=== PATIENT | female | born 1985 | race Caucasian/White ===

== ENCOUNTER → 2017-01-17 | Outpatient (CLI) | payer OTHER ==
--- NOTE | 2017-01-17 16:44 | US ---
EXAMINATION TYPE: US transvaginal DATE OF EXAM: 01/17/2017 COMPARISON: US 2012 CLINICAL HISTORY: Pelvic Pain R10.2. Symptoms x 2 weeks and noted across pelvis; constipation x 6 mon ths; had miscarriage in November. TECHNIQUE: Transvaginal (TV) Date of LMP: November 2016 EXAM MEASUREMENTS: Uterus: 7.8 x 5.5 x 3.8 cm Endometrial Stripe: 1.0 cm Right Ovary: 2.9 x 2.3x 2.0 cm Left Ovary: 2.5 x 2.3 x 2.0 cm 1. Uterus: Anteverted; Nabothian cysts in CX with largest = 0.3 x 0.3 x 0.2cm; heterogeneous/ nodula r appearance to upper myometrium with possible uterine fibroid = 1.1 x 1.2 x 0.9cm. 2. Endometrium: unable to correlate thickness with November LMP; small cyst in upper endometrium = 0.2 x 0.2 x 0.1cm 3. Right Ovary: multiple small follicles 4. Left Ovary: multiple small follicles with largest = 0.9 x 0.8 x 0.7cm Spectral, color and waveform Doppler imaging shows good arterial and venous flow within the ovaries ; 5. Bilateral Adnexa: wnl 6. Posterior cul-de-sac: wnl Uterus is heterogeneous in appearance. Endometrium is 10 mm which is not suspiciously thickened for s ecretory phase of menstrual cycle. There is suspected 1.2 cm intramural fibroid posterior myometrium marked by technologist. Multiple nabothian cysts are seen in the cervix. No free fluid is seen in pel vis. Both ovaries are identified. No suspicious extraovarian adnexal masses are seen. IMPRESSION: Suspect 1.2 cm posterior intramural fibroid.
== END | disposition home or self-care (01) ==
LOC: RADUSWWP 15:38
PROVIDERS: ATTEND Obstetrics & Gynecology
DX: R10.2 Pelvic and perineal pain (principal)
CPT/HCPCS: 76830

== ENCOUNTER → 2017-07-25 | Outpatient (CLI) | payer OTHER ==
--- NOTE | 2017-07-25 10:40 | FL ---
Barium swallow HISTORY: Dysphagia Patient was given barium to drink. 1.1 minutes fluoroscopy time, 35 images The swallowing mechanism is normal. No evident gastroesophageal reflux. No extrinsic or intrinsic eso phageal mass. No sizable hiatal hernia. IMPRESSION: Unremarkable barium swallow
== END | disposition home or self-care (01) ==
LOC: RADFLWHC 09:35
PROVIDERS: ATTEND Family Medicine
DX: R13.19 Other dysphagia (principal)
CPT/HCPCS: 74220

== ENCOUNTER 2017-10-31 10:22 | Emergency (ER) | payer OTHER ==
[2017-10-31 10:46] LABS: Glucose,Whole Blood 103 mg/dL (75-99)
--- NOTE | 2017-10-31 11:05 | ED ---
Weakness HPI - General Chief complaint: Weakness Stated complaint: lt sided numbness Time Seen by Provider: 10/31/17 10:44 Source: patient Mode of arrival: wheelchair Limitations: no limitations - History of Present Illness Initial comments: Patient is a 32-year-old female with past medical history of depression, panic disorder and anxiety who presents for left-sided weakness, numbness, tingling. She states that she was last known normal last night and this morning when she woke up, she was having these symptoms on the left side. She was recently started on Prozac on Friday and she called her PCP who prescribed his medication in the PCP advised her to come to the emergency department for evaluation of possible stroke. Patient states that she has no other past medical problems but that her father did have a stroke at 45 years old. She denies any blurry vision as well as dizziness. - Related Data Home Medications Medication Instructions Recorded Confirmed FLUoxetine HCL [PROzac] 20 mg PO HS 10/31/17 10/31/17 Luz Elena 1 tab PO HS 10/31/17 10/31/17 Omeprazole [PriLOSEC] 20 mg PO HS 10/31/17 10/31/17 Allergies Allergy/AdvReac Type Severity Reaction Status Date / Time Penicillins Allergy Anaphylaxis Verified 10/31/17 11:16 Review of Systems ROS Statement: Those systems with pertinent positive or pertinent negative responses have been documented in the HPI. Constitutional: Negative for chills, fatigue and fever. HENT: Negative for congestion. Respiratory: Negative for chest tightness, shortness of breath and wheezing. Cardiovascular: Negative for chest pain and palpitations. Gastrointestinal: Negative for abdominal pain. Negative for abdominal distention , diarrhea, nausea and vomiting. Genitourinary: Negative for dysuria. Musculoskeletal: Negative for back pain, neck pain and neck stiffness. Skin: Negative for color change. Neurological: Negative for dizziness, speech difficulty, and light-headedness. Positive for numbness, tingling, weakness Psychiatric/Behavioral: Negative for agitation and confusion. Positive for nervous/anxious. ROS Other: All systems not noted in ROS Statement are negative. Past Medical History Past Medical History: GERD/Reflux History of Any Multi-Drug Resistant Organisms: None Reported Additional Past Surgical History / Comment(s): Lumpectomy, LEEP, Past Psychological History: Anxiety, Depression, Panic Disorder Smoking Status: Current some day smoker Past Alcohol Use History: None Reported Past Drug Use History: None Reported General Exam - General Exam Comments Initial Comments: Physical Exam Constitutional: Pt is oriented to person, place, and time. Pt appears well- developed and well-nourished. No distress. HENT: Head: Normocephalic and atraumatic. Eyes: EOM are normal. Neck: Normal range of motion. Neck supple. Cardiovascular: Normal rate, regular rhythm, S1 normal, S2 normal and normal heart sounds. Exam reveals no gallop and no friction rub. No murmur heard. Pulmonary/Chest: Effort normal and breath sounds normal. No tachypnea and no bradypnea. No respiratory distress. No wheezes or rales noted. Abdominal: Soft. Bowel sounds are normal. Pt exhibits no shifting dullness, no distension, no pulsatile liver, no fluid wave, no abdominal bruit and no ascites. There is no tenderness. There is no rigidity, no rebound, no guarding, no tenderness at McBurney's point and negative Reynoso's sign. Musculoskeletal: Normal range of motion. Neurological: Pt is alert and oriented to person, place, and time. No cranial nerve deficit. Muscle strength 5 out of 5 in all extremities, No numbness noted on the left side with exception to the anterior surface of the left demarco Skin: Skin is warm and dry. No rash noted. Pt is not diaphoretic. No erythema. No pallor. Psychiatric: Pt has a normal mood and affect. Pt behavior is normal. Thought content normal. Limitations: no limitations Course Vital Signs 10/31/17 10/31/17 10/31/17 10:31 12:57 13:36 Temperature 99.6 F 97.9 F 98 F Pulse Rate 75 71 66 Respiratory 16 18 18 Rate Blood Pressure 133/70 131/72 154/78 O2 Sat by Pulse 99 98 99 Oximetry EKG Findings - EKG Comments: EKG Findings:: EKG shows normal sinus rhythm with a rate of 72 bpm, CA interval 170, QRS 76, QTC 431. There is no significant ST depressions or elevations Medical Decision Making - Medical Decision Making Laboratory studies revealed that electrolytes are within normal limits and hemoglobin was stable. EKG was also noted to be unremarkable as detailed another section of this note. Etiology of the initial symptoms are unclear and therefore CT head was performed and showed no evidence of acute pathology. Patient was observed for nearly 2-1/2-3 hours in the emergency department and she stated that her symptoms were nearly completely resolved. Extensive discussion was had with the patient regarding disposition of whether she should be brought into the hospital or discharged home. Joint decision making yielded that the patient will be discharged home as it is felt by both the physician and the patient that her symptoms are secondary to diagnoses other than CVA. Additionally, physical exam findings of left anterior demarco numbness is not consistent with acute CVA. Patient was unable to also provide a urine sample and understood that could not be excluded. Explained all labs and diagnostic test results and that we will discharge the patient home and patient is to follow up with PCP in 1-2 days and return to the ED if symptoms worsen. Pt is agreeable to plan. - Lab Data Result diagrams: 10/31/17 11:18 10/31/17 11:18 Lab Results 10/31/17 10/31/17 10/31/17 Range/Units 10:45 11:18 11:18 WBC 6.4 (3.8-10.6) k/uL RBC 4.44 (3.80-5.40) m/uL Hgb 13.9 (11.4-16.0) gm/dL Hct 40.6 (34.0-46.0) % MCV 91.5 (80.0-100.0) fL MCH 31.2 (25.0-35.0) pg MCHC 34.1 (31.0-37.0) g/dL RDW 12.4 (11.5-15.5) % Plt Count 237 (150-450) k/uL Neutrophils % 67 % Lymphocytes % 24 % Monocytes % 6 % Eosinophils % 2 % Basophils % 0 % Neutrophils # 4.3 (1.3-7.7) k/uL Lymphocytes # 1.5 (1.0-4.8) k/uL Monocytes # 0.4 (0-1.0) k/uL Eosinophils # 0.2 (0-0.7) k/uL Basophils # 0.0 (0-0.2) k/uL PT (9.0-12.0) sec INR (<1.2) APTT (22.0-30.0) sec Sodium 140 (137-145) mmol/L Potassium 4.4 (3.5-5.1) mmol/L Chloride 106 (98-107) mmol/L Carbon Dioxide 23 (22-30) mmol/L Anion Gap 11 mmol/L BUN 9 (7-17) mg/dL Creatinine 0.63 (0.52-1.04) mg/dL Est GFR (CKD-EPI)AfAm >90 (>60 ml/min/1.73 sqM) Est GFR (CKD-EPI)NonAf >90 (>60 ml/min/1.73 sqM) Glucose 88 (74-99) mg/dL POC Glucose (mg/dL) 103 H (75-99) mg/dL POC Glu Cnc Service Technician ID Jennifer Boss Calcium 9.0 (8.4-10.2) mg/dL Magnesium 2.1 (1.6-2.3) mg/dL Total Bilirubin 0.4 (0.2-1.3) mg/dL AST 23 (14-36) U/L ALT 27 (9-52) U/L Alkaline Phosphatase 58 (38-126) U/L Total Protein 6.6 (6.3-8.2) g/dL Albumin 3.8 (3.5-5.0) g/dL TSH 1.970 (0.465-4.680) mIU/L 10/31/17 Range/Units 11:18 WBC (3.8-10.6) k/uL RBC (3.80-5.40) m/uL Hgb (11.4-16.0) gm/dL Hct (34.0-46.0) % MCV (80.0-100.0) fL MCH (25.0-35.0) pg MCHC (31.0-37.0) g/dL RDW (11.5-15.5) % Plt Count (150-450) k/uL Neutrophils % % Lymphocytes % % Monocytes % % Eosinophils % % Basophils % % Neutrophils # (1.3-7.7) k/uL Lymphocytes # (1.0-4.8) k/uL Monocytes # (0-1.0) k/uL Eosinophils # (0-0.7) k/uL Basophils # (0-0.2) k/uL PT 10.1 (9.0-12.0) sec INR 1.0 (<1.2) APTT 22.5 (22.0-30.0) sec Sodium (137-145) mmol/L Potassium (3.5-5.1) mmol/L Chloride (98-107) mmol/L Carbon Dioxide (22-30) mmol/L Anion Gap mmol/L BUN (7-17) mg/dL Creatinine (0.52-1.04) mg/dL Est GFR (CKD-EPI)AfAm (>60 ml/min/1.73 sqM) Est GFR (CKD-EPI)NonAf (>60 ml/min/1.73 sqM) Glucose (74-99) mg/dL POC Glucose (mg/dL) (75-99) mg/dL POC Glu Cnc Service Technician ID Calcium (8.4-10.2) mg/dL Magnesium (1.6-2.3) mg/dL Total Bilirubin (0.2-1.3) mg/dL AST (14-36) U/L ALT (9-52) U/L Alkaline Phosphatase (38-126) U/L Total Protein (6.3-8.2) g/dL Albumin (3.5-5.0) g/dL TSH (0.465-4.680) mIU/L Disposition Clinical Impression: Numbness and tingling Disposition: HOME SELF-CARE Condition: Good Instructions: Paresthesia (ED) Is patient prescribed a controlled substance at d/c from ED?: No Referrals: Lorin Huitron MD [Primary Care Provider] - 1-2 days Time of Disposition: 13:07
[2017-10-31 11:40] LABS: Basophils % (A) 0 %; Eosinophils # (A) 0.2 k/uL (0-0.7); Eosinophils % (A) 2 %; HCT 40.6 % (34.0-46.0); HGB 13.9 gm/dL (11.4-16.0); Lymphocytes # (A) 1.5 k/uL (1.0-4.8); Lymphocytes % (A) 24 %; MCH 31.2 pg (25.0-35.0); MCHC 34.1 g/dL (31.0-37.0); MCV 91.5 fL (80.0-100.0); Mean Platelet Volume 7.1; Monocytes # (A) 0.4 k/uL (0-1.0); Monocytes % (A) 6 %; Neutrophils # (A) 4.3 k/uL (1.3-7.7); Neutrophils % (A) 67 %; Platelet Count 237 k/uL (150-450); RBC 4.44 m/uL (3.80-5.40); RDW 12.4 % (11.5-15.5); WBC 6.4 k/uL (3.8-10.6)
[2017-10-31 11:47] LABS: ALT 27 U/L (9-52); AST 23 U/L (14-36); Albumin 3.8 g/dL (3.5-5.0); Alkaline Phosphatase 58 U/L (38-126); Anion Gap 11 mmol/L; Blood Urea Nitrogen 9 mg/dL (7-17); Carbon Dioxide 23 mmol/L (22-30); Chloride 106 mmol/L (98-107); Glucose 88 mg/dL (74-99); Magnesium 2.1 mg/dL (1.6-2.3); Potassium 4.4 mmol/L (3.5-5.1); Sodium 140 mmol/L (137-145); Total Bilirubin 0.4 mg/dL (0.2-1.3); Total Protein 6.6 g/dL (6.3-8.2)
[2017-10-31 11:58] LABS: Partial Thromboplastin Time 22.5 sec (22.0-30.0); Prothrombin Time 10.1 sec (9.0-12.0)
--- NOTE | 2017-10-31 11:59 | CT ---
EXAMINATION TYPE: CT brain wo con DATE OF EXAM: 10/31/2017 COMPARISON: NONE HISTORY: Left sided leg and arm numbness and weakness CT DLP: 1036 mGycm. Automated Exposure Control for Dose Reduction was Utilized. TECHNIQUE: CT scan of the head is performed without contrast. FINDINGS: There is no acute intracranial hemorrhage, mass effect, or midline shift identified. The ventricles and sulci are within normal limits in size. Parkinson-white matter differentiation is maintai al. The globes are intact and the visualized sinuses are clear. IMPRESSION: No acute intracranial hemorrhage, mass effect, or midline shift is seen. Unremarkable st udy.
[2017-10-31 12:58] VITALS: RESP 18
[2017-10-31 13:37] VITALS: BP 154/78; PULSE 66; TEMP 98
== END 2017-10-31 13:36 | disposition home or self-care (01) ==
LOC: EC 10:22
DX: R20.0 Anesthesia of skin (principal); R20.2 Paresthesia of skin; R53.1 Weakness; K21.9 Gastro-esophageal reflux disease without esophagitis; F32.9 Major depressive disorder, single episode, unspecified; F41.0 Panic disorder [episodic paroxysmal anxiety]; F17.200 Nicotine dependence, unspecified, uncomplicated; Z79.899 Other long term (current) drug therapy; Z88.0 Allergy status to penicillin
CPT/HCPCS: 36415; 70450; 80053; 83735; 84443; 85025; 85610; 85730; 93005; 99285

== ENCOUNTER → 2018-01-12 | Outpatient (CLI) | payer OTHER ==
--- NOTE | 2018-01-12 10:46 | USB ---
Reason for exam: clinical finding. History: Benign left US cyst aspiration of the left breast, December 29, 2008. Benign US left guided VAD of the left breast, December 29, 2008. Excisional biopsy of the left breast, October 28, 2006. Indicated problem(s): lump or thickening in the left breast. Physical Findings: Nurse did not find any significant physical abnormalities on exam. US Breast BILAT Right complete breast ultrasound includes all four quadrants, the retroareolar region and axilla. Finding demonstrates no cystic or solid lesion seen. Left complete breast ultrasound includes all four quadrants, the retroareolar region and axilla. Finding demonstrates a 0.9 x 0.9 x 1.9cm linear, hyperechoic calcification at 7 o'clock at site of prior excisional biopsy. These results were verbally communicated with the patient and result sheet given to the patient on 01/12/18. ASSESSMENT: Benign, BI-RAD 2 RECOMMENDATION: Routine screening mammogram of both breasts at age 38. (or sooner if clinically indicated)
== END ==
LOC: RADUSWWP 09:02
PROVIDERS: ATTEND Obstetrics & Gynecology
DX: N63.10 Unspecified lump in the right breast, unspecified quadrant (principal); N63.20 Unspecified lump in the left breast, unspecified quadrant

== ENCOUNTER 2018-11-25 09:32 | Day surgery (SDC) | payer OTHER ==
[2018-11-23 10:29] VITALS: BMI 48.0
[2018-11-25 09:53] VITALS: TEMP 97.7
[2018-11-25] MEDS ORDERED: LACTATED RINGERS 1,000 ML IV ONE (09:54)
[2018-11-25] MEDS ORDERED: IV FLUID CONTINUATION 1,000 ML IV ONE ×2 (10:32)
--- NOTE | 2018-11-25 10:34 | P.PCN ---
Date of Procedure: 11/25/18 Procedure(s) Performed: Preoperative diagnosis: Headache Post operative diagnoses: Headache Procedure= diagnostic lumbar puncture under fluoroscopy guidance Anesthesia= moderate sedation Versed 1 mg and fentanyl 100 g local infiltration with lidocaine 1% 2 mL. Condition: stable Complication: none. Description of the procedure procedure risk and benefits discussed with the patient and family, consent signed. Patient and the procedure area placed in lateral position back prepped with chlorhexidine 3 times, sedation was given to decrease the patient anexity , fluoroscopy was used because patient morbidly obese, it will be technically difficult to do the procedure without fluoroscopy , local infiltration of the skin and subcutaneous tissue with lidocaine 1% 2 mL for skin and subcu interstitial frustrations at L4 5 levels then 22-gauge 5 inches long Quincke-type needle advanced slowly at L4- 5 interlaminar space there was positive cerebrospinal fluid which was clear, no heme, no paresthesia ,total of 8 ML of clear cerebrospinal fluid collected in 4 different tubes 2 mL in each, then the needle removed and a Band-Aid applied and patient tolerated the procedure well without any complications. Opening pressure was 26 cm of water. closing pressure ,after removal of 8 ML of cerebrospinal fluid ,was 20 cm of water
[2018-11-25 10:40] VITALS: RESP 18
--- NOTE | 2018-11-25 11:38 | FL ---
Fluoroscopy HISTORY: Lumbar puncture 12 seconds fluoroscopy time supplied to the referring clinician. 1 intraoperative C-arm images docum ent the procedure. See dictated report from anesthesia.
[2018-11-25 11:55] VITALS: BP 110/67; PULSE 69
== END 2018-11-25 11:53 | disposition home or self-care (01) ==
LOC: ORPAIN 09:32
PROVIDERS: ATTEND Specialist
DX: G93.2 Benign intracranial hypertension (principal); R51 Headache
CPT/HCPCS: 62270; J2250; J3010

== ENCOUNTER → 2023-04-09 | Outpatient (CLI) | payer OTHER ==
[2023-04-09 16:11] LABS: BUN/Creat Ratio 14.62 Ratio (12.00-20.00); Blood Urea Nitrogen 11.7 mg/dL (9.0-27.0); Calcium 9.3 mg/dL (8.7-10.3); Carbon Dioxide 27.5 mmol/L (21.6-31.8); Chloride 100 mmol/L (96-109); Glucose 97 mg/dL (70-110); Potassium 3.3 mmol/L (3.5-5.5); Sodium 141 mmol/L (135-145)
[2023-04-09 16:23] LABS: Basophils # (A) 0.04 X 10*3/uL (0.00-0.10); Basophils % (A) 0.6 %; Eosinophils # (A) 0.17 X 10*3/uL (0.04-0.35); Eosinophils % (A) 2.4 %; HCT 37.9 % (37.2-46.3); HGB 12.8 d/dL (12.0-15.0); Lymphocytes # (A) 1.98 X 10*3/uL (0.90-5.00); Lymphocytes % (A) 27.8 %; MCH 32.4 pg (27.0-32.0); MCHC 33.8 d/dL (32.0-37.0); MCV 95.9 FL (80.0-97.0); Mean Platelet Volume 11.2 FL (9.5-12.2); Monocytes # (A) 0.57 X 10*3/uL (0.20-1.00); NRBC Per 100 WBC 0 X 10*3/uL (0.00-0.01); Neutrophils # (A) 4.34 X 10*3/uL (1.80-7.70); Neutrophils % (A) 60.9 %; Platelet Count 283 X 10*3/uL (140-440); RBC 3.95 X 10*6/uL (4.10-5.20); RDW 12.5 % (11.5-14.5); WBC 7.12 X 10*3/uL (4.50-10.00)
== END | disposition home or self-care (01) ==
LOC: LABPAT 09:35
PROVIDERS: ATTEND Obstetrics & Gynecology
DX: Z01.812 Encounter for preprocedural laboratory examination (principal)
CPT/HCPCS: 36415; 80048; 85025; 86850; 86900; 86901

== ENCOUNTER → 2023-04-17 | Day surgery (SDC) | payer OTHER ==
--- NOTE | 2023-04-16 16:01 | P.HPOB ---
History of Present Illness H&P Date: 04/16/23 Chief Complaint: persistent high grade cervical dysplasia 38 year old presents for TLH BS using da jonny and diagnostic cystoscopy. She has already had a leep for RADHA 2 and will now undergo hysterectomy for the persistent high grade. Review of Systems All systems: negative Constitutional: Denies chills, Denies fever Eyes: denies blurred vision, denies pain Ears, nose, mouth and throat: Denies headache, Denies sore throat Cardiovascular: Denies chest pain, Denies shortness of breath Respiratory: Denies cough Gastrointestinal: Denies abdominal pain, Denies diarrhea, Denies nausea, Denies vomiting Genitourinary: Denies dysuria, Denies hematuria Musculoskeletal: Denies myalgias Integumentary: Denies pruritus, Denies rash Neurological: Denies numbness, Denies weakness Psychiatric: Denies anxiety, Denies depression Endocrine: Denies fatigue, Denies weight change Past Medical History Past Medical History: GERD/Reflux Additional Past Medical History / Comment(s): migraines, constipation, hypoglycemia, bilateral eye glaucoma. History of Any Multi-Drug Resistant Organisms: None Reported Past Surgical History: Breast Surgery Additional Past Surgical History / Comment(s): left breast lumpectomy, LEEP, rectocele repair. Past Anesthesia/Blood Transfusion Reactions: Motion Sickness, Postoperative Nausea & Vomiting (PONV) Smoking Status: Former smoker - Past Family History Mother Family Medical History: Diabetes Mellitus, Renal Disease Additional Family Medical History / Comment(s): from renal failure Medications and Allergies Home Medications Medication Instructions Recorded Confirmed Type Sronyx 1 dose PO HS 04/11/23 04/11/23 History Travoprost [Travoprost 0.004%] 1 dose BOTH EYES DAILY 04/11/23 04/11/23 History hydroCHLOROthiazide 25 mg PO DAILY PRN 04/11/23 04/11/23 History Allergies Allergy/AdvReac Type Severity Reaction Status Date / Time Penicillins Allergy Severe Anaphylaxis Verified 04/11/23 12:52 fluconazole [From Diflucan] Allergy SEVERE Verified 04/11/23 12:51 NOSE BLEEDS. oxybutynin Allergy OLIGURIA Verified 04/11/23 12:52 Exam Osteopathic Statement: *. No significant issues noted on an osteopathic structural exam other than those noted in the History and Physical/Consult. HEart: RRR Lungs: CTAB Abdomen: soft, nontender Extremeties: neg miracle's Assessment and Plan (1) High grade squamous intraepithelial cervical dysplasia Status: Acute Code(s): R87.613 - HIGH GRADE INTREPITH LESION CYTO SMR CRVX (HGSIL) SNOMED Code(s): 671387132 Plan: 1. [facility] BS using da jonny and diagnostic cystoscopy
[~2023-04-17] MED LIST: DEXAMETHASONE SOD PHOSPHATE 4 MG/ML 1 ML VIAL IV ONE; HYDROmorphone 0.5 MG/0.5 ML SYRINGE IVP PRN; LACTATED RINGERS 1,000 ML IV SCH; LIDOCAINE 1% (10MG/ML) FOR IV START INTRADERMA ONE; MIDAZOLAM 2 MG/2 ML VIAL IV PRN; ONDANSETRON 4 MG/2 ML VIAL IVP ONE; ceFAZolin 3 GM in SODIUM CHLORIDE 0.9% 100 ML IVPB PRN
[2023-04-17 06:34] VITALS: BP 143/88; PULSE 80; RESP 16; TEMP 97.3
== END ==
LOC: OR 05:31
PROVIDERS: ATTEND Obstetrics & Gynecology
DX: R87.613 High grade squamous intraepithelial lesion on cytologic smear of cervix (HGSIL) (principal); Z53.8 Procedure and treatment not carried out for other reasons